=== PATIENT | female | born 1990 | race Caucasian/White ===

== ENCOUNTER 2019-02-02 10:52 | Emergency (ER) | payer BC, MEDICAID ==
[2019-02-02 10:52] VITALS: BMI 34.7
[2019-02-02 11:31] VITALS: O2SAT 100
[2019-02-02 12:24] LABS: BASO % 0.8 % (0.0-2.0); EOS # 0.1 K/uL (0.0-0.7); EOS % 1.3 % (0.0-4.0); HEMOGLOBIN 12.8 g/dL (11.0-16.0); LYMPH # 1.4 K/uL (1.0-4.3); LYMPH % 33.7 % (20.0-40.0); MEAN CORPUSCULAR HEMOGLOBIN 30.4 pg (27.0-31.0); MEAN CORPUSCULAR HGB CONC 34.3 g/dL (33.0-37.0); MEAN PLATELET VOLUME 8.3 fL (7.2-11.7); MONO # 0.3 K/uL (0.0-0.8); MONO % 8.2 % (0.0-10.0); NEUT # 2.3 K/uL (1.8-7.0); NRBC % 0.1 % (0.0-2.0); RBC 4.22 Mil/uL (3.80-5.20); RED CELL DISTRIBUTION WIDTH 13.8 % (11.5-14.5); WHITE BLOOD COUNT 4.1 K/uL (4.8-10.8)
[2019-02-02 12:28] LABS: MEAN CELL VOLUME 88.7 fL (81.0-99.0)
[2019-02-02 12:29] LABS: SQUAMOUS EPITHIAL 3 /hpf (0-5); URINE BILIRUBIN NEGATIVE (NEGATIVE); URINE BLOOD NEGATIVE (NEGATIVE); URINE CLARITY Clear (Clear); URINE COLOR Yellow (YELLOW); URINE GLUCOSE (UA) NORMAL (Normal); URINE LEUKOCYTE ESTERASE NEG Leu/uL (Negative); URINE PROTEIN NEGATIVE (NEGATIVE); URINE UROBILINOGEN NORMAL mg/dL (0.2-1.0)
[2019-02-02 12:38] LABS: BLOOD UREA NITROGEN 8 mg/dL (7-17); GFR NON-AFRICAN AMERICAN > 60
--- NOTE | 2019-02-02 14:37 | US ---
Indication: abd. pain Comparison: No recent ultrasound available for comparison. Technique: Real-time ultrasound was performed through the pelvis. Findings: There is a single living fetus in breech presentation. Anterior placenta. There are no adnexal masses or cysts evident. Cervix length measures approximately 5 cm. Measurements and calculations: Fetus has a composite sonographic age of 13 weeks 2 days. This calculation is based on the biparietal diameter, head circumference, abdominal circumference, and femur length. Estimated heart rate 137.2 beats per min. Impression: Single living fetus with a composite sonographic age of 13 weeks 2 days. Estimated heart rate 137.2 beats per min. Advise an anomaly screen at 16-18 weeks gestational age.
[2019-02-02 15:10] VITALS: BP 133/77; PULSE 89; RESP 14; TEMP 99.3
--- NOTE | 2019-02-02 15:20 | C.PDOC ---
History Of Present Illness 28-year-old female with prior hx of ectopic x1, LNMP 09/15/18 , presents to the ED complaining of diffuse lower abdominal cramping developed for the past few days. Patient admits that 3 days ago, she had an episode of bloody vaginal spotting. At present time patient is asymptomatic. Otherwise pt denies any fevers, chills, vomiting, diarrhea, dysuria, frequency, or back pain, hematuria at present time. Time Seen by Provider: 02/02/19 12:11 Chief Complaint (Nursing): Female Genitourinary History Per: Patient History/Exam Limitations: no limitations Onset/Duration Of Symptoms: Days Current Symptoms Are (Timing): Still Present Quality Of Discomfort: Cramping Abnormal Vaginal Bleeding: Yes Last Menstral Period: 09/15/18 : 4 Para: 2 Miscarriage: 1 (ectopic x1) Past Medical History Reviewed: Historical Data, Nursing Documentation, Vital Signs Vital Signs: Last Vital Signs Temp 99.3 F 02/02/19 15:09 Pulse 89 02/02/19 15:09 Resp 14 02/02/19 15:09 BP 133/77 02/02/19 15:09 Pulse Ox 100 02/02/19 15:09 - Medical History PMH: Migraine, Sexually Transmitted Disease (vag. herpes) Other Surgeries: Ectopic surgery Family History: States: Unknown Family Hx - Social History Hx Tobacco Use: No Hx Alcohol Use: No Hx Substance Use: No - Immunization History Hx Tetanus Toxoid Vaccination: No Hx Influenza Vaccination: Yes Hx Pneumococcal Vaccination: No Review Of Systems Constitutional: Negative for: Fever, Chills Eyes: Negative for: Vision Change Cardiovascular: Negative for: Chest Pain, Palpitations Respiratory: Negative for: Shortness of Breath Gastrointestinal: Positive for: Abdominal Pain (lower, diffuse cramping). Negative for: Nausea, Vomiting, Diarrhea Genitourinary: Positive for: Vaginal Bleeding (3 days ago). Negative for: Dysuria, Frequency, Incontinence, Vaginal Discharge Musculoskeletal: Negative for: Back Pain Neurological: Negative for: Weakness, Dizziness Physical Exam - Physical Exam Appears: Well, Non-toxic, No Acute Distress Skin: Normal Color, Warm, No Rash Eye(s): bilateral: PERRL Oral Mucosa: Moist Neck: Trachea Midline, Supple Chest: Symmetrical Cardiovascular: Rhythm Regular, No Murmur Respiratory: No Decreased Breath Sounds, No Accessory Muscle Use, No Rhonchi, No Wheezing Gastrointestinal/Abdominal: Soft, No Tenderness, No Distention, No Guarding, No Rebound Back: No CVA Tenderness, No Vertebral Tenderness Extremity: Bilateral: Atraumatic, Normal Color And Temperature Neurological/Psych: Oriented x3, Normal Speech ED Course And Treatment - Laboratory Results Result Diagrams: 02/02/19 12:21 02/02/19 12:21 Lab Results: Urine Color Yellow (YELLOW) 02/02/19 12:21 Urine Clarity Clear (Clear) 02/02/19 12:21 Urine pH 7.0 (5.0-8.0) 02/02/19 12:21 Ur Specific [place] 1.010 (1.003-1.030) 02/02/19 12:21 Urine Protein Negative mg/dL (NEGATIVE) 02/02/19 12:21 Urine Glucose (UA) Normal mg/dL (Normal) 02/02/19 12:21 Urine Ketones Negative mg/dL (NEGATIVE) 02/02/19 12:21 Urine Blood Negative (NEGATIVE) 02/02/19 12:21 Urine Nitrate Negative (NEGATIVE) 02/02/19 12:21 Urine Bilirubin Negative (NEGATIVE) 02/02/19 12:21 Urine Urobilinogen Normal mg/dL (0.2-1.0) 02/02/19 12:21 Ur Leukocyte Esterase Neg Sonya/uL (Negative) 02/02/19 12:21 Urine WBC (Auto) < 1 /hpf (0-5) 02/02/19 12:21 Urine RBC (Auto) < 1 /hpf (0-3) 02/02/19 12:21 Ur Squamous Epith Cells 3 /hpf (0-5) 02/02/19 12:21 Beta HCG, Quant 02348.00 mIU/ML 02/02/19 12:21 Urine POC: Positive O2 Sat by Pulse Oximetry: 100 (on RA) Pulse Ox Interpretation: Normal - CT Scan/US OB US Other Rad Studies (CT/US): Radiology Report Reviewed CT/US Interpretation: Study Comment : Sex / Age : F / 28Y. Creator : Raisa Kulkarni MD. Dictator : Raisa Gutierrez MD. Computer Hardware Developer : Tiler'S Assistant : Raisa Gutierrez MD. Approver2 : Report Date : 02/02/2019 14:32:34. My Comment : . Indication: abd. pain. Comparison: No recent ultrasound available for comparison. Technique: Real-time ultrasound was performed through the pelvis. Findings: There is a single living fetus in breech presentation. Anterior placenta. There are no adnexal masses or cysts evident. Cervix length measures approximately 5 cm. Measurements and calculations: Fetus has a composite sonographic age of 13 weeks 2 days. This calculation is based on the biparietal diameter, head circumference, abdominal circumference, and femur length. Estimated heart rate 137.2 beats per min. Impression: Single living fetus with a composite sonographic age of 13 weeks 2 days. Estimated heart rate 137.2 beats per min. Advise an anomaly screen at 16-18 weeks gestational age. Progress Note: Labs and OB/ US ordered and reviewed. Pt remained tsable. Afebrile, hemoydnamicaly stable. NOn-toxic. AbdL: benign, (-) guarding, (-) rebound. back: (-) CVA tenderness. Blood work review and appears normal. US: Life IUPO 13wks, (+) FHR, no acute abnoramlities noted. Pt advised on course of ds. ref. to F/u with OBin 2 days or return to ED for re- eavluation, repeat beta quant. Pt stable for discharge now. Disposition Counseled Patient/Family Regarding: Studies Performed, Diagnosis, Need For Followup, Rx Given - [facility] Disposition: HOME/ ROUTINE Disposition Time: 14:50 Condition: STABLE Additional Instructions: Encourage fluids " Pelvic rest" for 1-2 weeks, avoid heavy lifting, sexual activity Take vitamins Follow up with OB in 2 or return to ED for re-evaluation Return to ED if any worsening or new changes. Prescriptions: Multivit/Folic Acid/I [ Plus] 1 tab PO DAILY #30 tab Instructions: Threatened Miscarriage Forms: [employer] ([place]) - Clinical Impression Clinical Impression: Threatened - PA / GOVERNMENT INSTRUCTOR / Resident Statement MD/DO has reviewed & agrees with the documentation as recorded. - Scribe Statement The provider has reviewed the documentation as recorded by the Scribe Edie Garcia All medical record entries made by the Scribe were at my direction and personally dictated by me. I have reviewed the chart and agree that the record accurately reflects my personal performance of the history, physical exam, medical decision making, and the department course for this patient. I have also personally directed, reviewed, and agree with the discharge instructions and disposition.
== END 2019-02-02 16:10 | disposition home or self-care (01) ==
LOC: C.ER 10:52
DX: O20.0 Threatened abortion (principal); Z3A.13 13 weeks gestation of pregnancy